=== PATIENT | male | born 1985 | race Hispanic/Latino ===

== ENCOUNTER 2022-05-29 14:13 | Emergency (ER) | payer OTHER, SELFPAY ==
[2022-05-29] MEDS ORDERED: Boostrix 0.5 ML (Tdap) VIAL (>/=7 yrs of age) ONE (14:20)
[2022-05-29] MEDS ORDERED: Fentanyl 100 MCG/2 ML VIAL ONE (14:20)
[2022-05-29] MEDS ORDERED: CEFAZOLIN 1 GM VIAL ONE (14:20)
[2022-05-29] MEDS ORDERED: Ketamine 50 MG/ML (10ML VIAL) ONE (14:28)
[2022-05-29] MEDS ORDERED: Ondansetron PF 4 MG/2 ML Vial ONE (14:42)
[2022-05-29 15:11] LABS: #Basophils 0.1 thou/uL (0.0-0.2); #Eosinphils 0.4 thou/uL (0.0-0.7); #Monocytes 1.4 thou/uL (0.11-0.59); #Neutrophils 10.8 thou/uL (1.40-6.50); %Basophils 0.4 % (0.0-1.0); %Eosinophils 2.4 % (0.0-10.0); %Lymphocytes 19.2 % (21.0-51.0); %Monocytes 8.6 % (0.0-10.0); %Neutrophils 69.3 % (42.0-75.0); Hemoglobin 14.9 g/dL (14.0-18.0); Mean Corpuscular HGB CONC 33.4 g/dL (32.0-36.0); Mean Corpuscular Hemoglobin 32.2 pg (27.0-31.0); Mean Corpuscular Volume 96.3 fl (78.0-98.0); Mean Platelet Volume 8.9 fL (7.4-10.4); Platelet Count 307 10x3/uL (130-400); RBC Distribution Width 12.7 % (11.5-14.5); Red Blood Cell (RBC) Count 4.64 mill/uL (4.70-6.10); White Blood Cell (WBC) Count 15.6 10x3/uL (4.8-10.8)
[2022-05-29 15:26] LABS: Prothrombin Time 13.6 sec (12.0-14.7)
[2022-05-29 15:33] LABS: ALT (SGPT) 43 U/L (8-55); AST (SGOT) 24 U/L (5-34); Alkaline Phosphatase 133 U/L (40-110); Anion Gap 16 mmol/L (10-20); BUN (Urea Nitrogen) 12 mg/dL (8.9-20.6); Bilirubin, Total 0.4 mg/dL (0.2-1.2); Calc. Creatinine Clearance 0 mL/min (70-130); Calcium 8.8 mg/dL (7.8-10.44); Carbon Dioxide 23 mmol/L (22-29); Chloride 106 mmol/L (98-107); Estimated GFR 116; Globulin 3.3 g/dL (2.4-3.5); Glucose 111 mg/dL (70-105); Potassium 3.7 mmol/L (3.5-5.1); Protein, Total 7.3 g/dL (6.0-8.3); Sodium 141 mmol/L (136-145)
[2022-05-29] MEDS ORDERED: Morphine 4 MG/ML VIAL ONE (16:18)
[2022-05-29] MEDS ORDERED: Ketorolac Tromethamine 30 MG/ML VIAL ONE (16:18)
== END 2022-05-29 16:25 | disposition short-term general hospital (02) ==
LOC: ERS 14:13
DX: S82.301B Unspecified fracture of lower end of right tibia, initial encounter for open fracture type I or II (principal); S82.831B Other fracture of upper and lower end of right fibula, initial encounter for open fracture type I or II; Z23 Encounter for immunization; Y36.2 War operations involving other explosions and fragments
CPT/HCPCS: 29515; 71045; 80053; 85025; 85610; 85730; 86850; 86900; 86901; 90471; 90715; 96374; 96375; 99156; G0390; J0690; J1885; J2270; J2405; J3010